=== PATIENT | male | born 1990 | race Caucasian/White ===

== ENCOUNTER 2024-04-10 10:05 | Emergency (ER) | payer MEDICAID, OTHER ==
[~2024-04-10] VITALS: Ht 182.9 cm; Wt 73.5 kg
[2024-04-10 11:26] LABS: BASOPHILS % (AUTO) 0.4 % (0.0-2.0); DIFFERENTIAL COMMENT 0; EOSINOPHILS # (AUTO) 0.1 K/uL (0.0-0.7); EOSINOPHILS % (AUTO) 2.1 % (0.0-7.0); HEMATOCRIT 38.8 % (36.7-47.1); HEMOGLOBIN 12.2 g/dL (12.5-16.3); LYMPHOCYTES # (AUTO) 1.6 K/uL (0.8-4.8); LYMPHOCYTES % (AUTO) 46.5 % (20.5-51.5); MEAN CORPUSCULAR HEMOGLOBIN 23.4 uug (23.8-33.4); MEAN CORPUSCULAR HGB CONC 31 g/dL (32.5-36.3); MEAN CORPUSCULAR VOLUME 74.6 fL (73.0-96.2); MONOCYTES # (AUTO) 0.3 K/uL (0.1-1.30); MONOCYTES % (AUTO) 8.2 % (0.0-11.0); NEUTROPHILS # (AUTO) 1.4 K/uL (1.8-8.9); NEUTROPHILS % (AUTO) 42.8 % (38.5-71.5); PLATELET COUNT (AUTO) 173 K/uL (152-348); RED CELL DISTRIBUTION WIDTH 12.1 % (12.1-16.2); WHITE BLOOD COUNT (AUTO) 3.4 K/uL (3.6-10.2)
[2024-04-10 11:31] LABS: CALCIUM 9.1 mg/dL (8.5-10.1); CARBON DIOXIDE 30 mmol/L (21-32); CHLORIDE 104 mmol/L (98-107); GLUCOSE 84 mg/dL (74-106); POTASSIUM 4.7 mmol/L (3.5-5.1); SODIUM SERUM 139 mmol/L (136-145); UREA NITROGEN, BLOOD 19 mg/dL (7-18)
[2024-04-10 11:39] LABS: ALANINE AMINOTRANSFERASE 17 U/L (16-63); ALBUMIN 3.9 g/dL (3.4-5.0); ALKALINE PHOSPHATASE 66 U/L (50-136); ASPARTATE AMINOTRANSFERASE 13 U/L (15-37); BILIRUBIN,DIRECT 0.1 mg/dL (0.0-0.2); BILIRUBIN,TOTAL 0.7 mg/dL (0.2-1.0); LIPASE 40 U/L (16-77); TOTAL PROTEIN, SERUM 6.7 g/dL (6.4-8.2)
[2024-04-10] MEDS ORDERED: FAMO40TA7 PO (11:50)
[2024-04-10] MEDS ORDERED: SUCR1ORA4 PO (11:50)
[2024-04-10] MEDS ORDERED: SWABABLE VALVE TRANSFER SET EA MC ONE (12:06)
[2024-04-10] MEDS ORDERED: IOHEXOL 300MG/ML 100 ML INFUS..BTL ONE (12:06)
[2024-04-10] MEDS ORDERED: IV NORMAL SALINE 250 ML IV ONE (12:06)
[2024-04-10 12:29] LABS: EOSINOPHILS % (MANUAL) 4 % (0-8); HYPOCHROMASIA 1+; LYMPHOCYTES % (MANUAL) 46 % (20-40); MONOCYTES % (MANUAL) 9 % (2-10); NEUTROPHILS % (MANUAL) 41 % (42-75); PLATELET ESTIMATE ADEQUATE
[2024-04-10 13:35] VITALS: BP 101/69; O2SAT 100
== END 2024-04-10 13:31 | disposition home or self-care (01) ==
LOC: ER 10:05
DX: K43.9 Ventral hernia without obstruction or gangrene (principal); R10.13 Epigastric pain; Z79.899 Other long term (current) drug therapy; Z88.6 Allergy status to analgesic agent
CPT/HCPCS: 99285; 74177; 76705; 71045; 80076; 80048; 83690; 85025; 85730; 84484; 36415; 93005; 85007; Q9967; 70030-TC; A4606; A4663